=== PATIENT | female | born 1970 | race Two or more races ===

== ENCOUNTER 2018-12-02 09:29 | Outpatient (CLI) | payer OTHER | END 2018-12-02 10:06 | disposition home or self-care (01) | LOC: SONOGRAMA 09:29 | DX: E04.2 Nontoxic multinodular goiter (principal) ==

== ENCOUNTER 2021-02-06 08:30 | Outpatient (CLI) | payer OTHER | END 2021-02-06 09:06 | disposition home or self-care (01) | LOC: SONOGRAMA 08:30 | DX: Q61.01 Congenital single renal cyst (principal); R94.5 Abnormal results of liver function studies ==

== ENCOUNTER 2022-07-02 06:55 | Day surgery (SDC) | payer OTHER ==
[~2022-07-02 06:55] MED LIST: D3 + K2 DOTS 11 EACH PO; VITAMIN C500 M6 PO
== END 2022-07-02 17:20 | disposition home or self-care (01) ==
LOC: CIR.AMB 06:55
PROVIDERS: ATTEND Obstetrics & Gynecology
DX: N84.0 Polyp of corpus uteri (principal); N72 Inflammatory disease of cervix uteri; N88.8 Other specified noninflammatory disorders of cervix uteri; N88.2 Stricture and stenosis of cervix uteri; Z88.8 Allergy status to other drugs, medicaments and biological substances; G43.909 Migraine, unspecified, not intractable, without status migrainosus

== ENCOUNTER 2022-12-25 09:24 | Outpatient (CLI) | payer OTHER | END 2022-12-25 09:25 | disposition home or self-care (01) | LOC: SONOGRAMA 09:24 | PROVIDERS: ATTEND Internal Medicine Cardiovascular Disease | DX: E03.9 Hypothyroidism, unspecified (principal) ==

== ENCOUNTER 2025-01-22 13:01 | Outpatient (CLI) | payer OTHER | END 2025-01-22 13:11 | disposition home or self-care (01) | LOC: SONOGRAMA 13:01 | PROVIDERS: ATTEND Internal Medicine | DX: E04.2 Nontoxic multinodular goiter (principal) ==